=== PATIENT | female | born 1980 | race Two or more races ===

== ENCOUNTER 2017-03-19 19:54 | Emergency (ER) | payer MEDICAID ==
[~2017-03-19] VITALS: Ht 160 cm; Wt 81.6 kg
--- NOTE | 2017-03-19 20:00 | NUR ---
TO BED 5 A 36 YO FEMALE BIBSELF W C/O HEADACHE/ PUBIC AREA BURNING LIKE PAIN X 3 DAYS AND NAUSEA. PATIENT IS AAOX4, AMBULATORY WITH STEADY GAIT, NAD NOTED. VSS. AFEBRILE. NONDIAPHORETIC. INTIATED COMFORT MEASURES. AWAITING FOR ER MD FOSTER.
--- NOTE | 2017-03-19 20:05 | NUR ---
DR TURNER AT BEDSIDE TO EVAL.
[2017-03-19 20:14] LABS: APPEARANCE,URINE Clear (CLEAR); BILIRUBIN,URINE Negative (NEGATIVE); BLOOD, URINE Negative Ery/uL (NEGATIVE); COLOR,URINE Yellow (YELLOW); KETONES,URINE Negative (NEGATIVE); LEUKOCYTE ESTERASE ,URINE Negative (NEGATIVE); NITRITE, URINE Negative (NEGATIVE); PROTEIN,URINE Negative (NEGATIVE); UGLUCOSE Negative (NEGATIVE); UROBILINOGEN,URINE 0.2 EU/dL (0.2)
[2017-03-19 20:16] LABS: PREGNANCY TEST URINE QUAL NEGATIVE (NEGATIVE)
[2017-03-19] MEDS ORDERED: ACETAMINOPHEN ES 500 MG TABLET ONE (20:17)
--- NOTE | 2017-03-19 20:20 | NUR ---
medicated patient. [facility] tech at bedside.
[2017-03-19] MEDS ORDERED: KETOROLAC TROMETHAMINE INJ 30 MG/ML VIAL ONE (20:24)
[2017-03-19] MEDS ORDERED: KETOROLAC TROMETHAMINE INJ 60 MG/2 ML VIAL IM ONE (20:30)
[2017-03-19] MEDS ORDERED: ACETAMINOPHEN ES 500 MG TABLET PO ONE (20:30)
--- NOTE | 2017-03-19 20:56 | NUR ---
Patient discharged to home in stable condition. Written and verbal after care instructions given. Patient verbalizes understanding of instruction. Patient is ambulatory with steady gait, accompanie by friend, no further complaints.
[2017-03-19 21:21] VITALS: BP 129/77
== END 2017-03-19 21:23 | disposition home or self-care (01) ==
LOC: ER 19:58
DX: N83.201 Unspecified ovarian cyst, right side (principal)
CPT/HCPCS: 76856; 81001; 84703; 96372; 99285; A4606; J1885 ×2; Z7610; 81000-TC